=== PATIENT | female | born 1995 | race African-American/Black ===

== ENCOUNTER 2017-03-15 23:27 | Emergency (ER) | payer OTHER, SELFPAY ==
[2017-03-16] MEDS ORDERED: Ibuprofen 800 MG TAB ONE (01:14)
== END 2017-03-16 01:50 | disposition home or self-care (01) ==
LOC: ERS 23:27
DX: H10.9 Unspecified conjunctivitis (principal); J06.9 Acute upper respiratory infection, unspecified; E66.9 Obesity, unspecified; K21.9 Gastro-esophageal reflux disease without esophagitis; F41.9 Anxiety disorder, unspecified; F32.9 Major depressive disorder, single episode, unspecified; F25.9 Schizoaffective disorder, unspecified; F17.210 Nicotine dependence, cigarettes, uncomplicated; Z79.899 Other long term (current) drug therapy
CPT/HCPCS: 99406

== ENCOUNTER 2021-01-10 02:41 | Emergency (ER) | payer SELFPAY | END 2021-01-10 03:46 | disposition home or self-care (01) | LOC: ERS 02:41 | DX: K02.9 Dental caries, unspecified (principal); K21.9 Gastro-esophageal reflux disease without esophagitis; F17.290 Nicotine dependence, other tobacco product, uncomplicated | CPT/HCPCS: 99281 ==